=== PATIENT | female | born 1945 | race Caucasian/White ===

== ENCOUNTER 2018-05-18 06:00 | Day surgery (SDC) | payer OTHER ==
[~2018-05-18 06:00] MED LIST: AMLODIPINE BESYL5 MG PO; DIOVAN160 M1 PO; PAXIL20 MG PO; SINGULAIR10 MG PO; ZANTAC300 MG PO
[2018-05-18] MEDS ORDERED: NAPROXEN500 MG PO (13:15)
[2018-05-18] MEDS ORDERED: DOXYCYCLINE HY100 MG PO (13:20)
== END 2018-05-18 16:15 | disposition home or self-care (01) ==
LOC: CIR.AMB 06:00
DX: N84.0 Polyp of corpus uteri (principal); D25.0 Submucous leiomyoma of uterus